=== PATIENT | female | born 1970 | race Hispanic/Latino ===

== ENCOUNTER 2020-09-06 10:24 | Emergency (ER) | payer OTHER ==
[~2020-09-06] VITALS: Ht 149.9 cm; Wt 63.5 kg
[2020-09-06 12:26] VITALS: BP 140/72
[2020-09-06] MEDS ORDERED: TETANUS/DIPHTHERIA TOXOID [ADULT] 0.5 ML VIAL IM SCH (12:30)
[2020-09-06] MEDS ORDERED: ACETAMINOPHEN-CODEINE 300/30MG TAB PO ONE (12:30)
[2020-09-06] MEDS ORDERED: NAPR-1180 PO (12:55)
== END 2020-09-06 13:16 | disposition home or self-care (01) ==
LOC: EDH 10:24
DX: S60.032A Contusion of left middle finger without damage to nail, initial encounter (principal); Z79.1 Long term (current) use of non-steroidal anti-inflammatories (NSAID); W23.0XXA Caught, crushed, jammed, or pinched between moving objects, initial encounter; Y93.89 Activity, other specified; Y92.098 Other place in other non-institutional residence as the place of occurrence of the external cause; Y99.8 Other external cause status
CPT/HCPCS: 73140; 90471; 90714

== ENCOUNTER 2021-07-08 17:10 | Emergency (ER) | payer OTHER ==
[~2021-07-08] VITALS: Ht 149.9 cm; Wt 63.5 kg
[~2021-07-08 17:10] MED LIST: NAPR-1180 PO
[2021-07-08] MEDS ORDERED: ACETAMINOPHEN WITH CODEINE 1 TAB TAB PO ONE (18:30)
[2021-07-08 18:46] LABS: BASOPHILS % (AUTO) 0.3 % (0.0-5.0); EOSINOPHILS % (AUTO) 1.6 % (0.0-8.0); HEMATOCRIT 36.1 % (36-48); LYMPHOCYTES % (AUTO) 36.7 % (21.0-51.0); MEAN CORPUSCULAR HEMOGLOBIN 31.6 pg (27.0-33.0); MEAN CORPUSCULAR HGB CONC 33.8 g/dL (32.0-36.0); MEAN CORPUSCULAR VOLUME 93.5 fL (79-99); MONOCYTES % (AUTO) 8.8 % (3.0-13.0); NEUTROPHILS % (AUTO) 52.4 % (40.0-77.0); PLATELET COUNT (AUTO) 268 K/uL (130-400); RED BLOOD CELL COUNT(AUTO) 3.86 MIL/uL (4.00-5.50); RED CELL DISTRIBUTION WIDTH 12.7 % (11.0-15.5); WHITE BLOOD COUNT (AUTO) 6.3 K/uL (4.8-10.8)
[2021-07-08 19:02] LABS: CREATININE 0.9 mg/dL (0.5-1.5); POTASSIUM 3.3 mmol/L (3.5-5.1)
[2021-07-08 19:07] LABS: ALBUMIN 3.7 g/dL (3.5-5.0); BILIRUBIN,TOTAL 0.2 mg/dL (0.2-1.0)
[2021-07-08 19:20] VITALS: BP 167/85
== END 2021-07-08 20:17 | disposition home or self-care (01) ==
LOC: EDH 17:10
DX: M79.662 Pain in left lower leg (principal); M79.661 Pain in right lower leg; Z90.710 Acquired absence of both cervix and uterus; Z79.1 Long term (current) use of non-steroidal anti-inflammatories (NSAID)
CPT/HCPCS: 36415; 80053; 85025; 93970

== ENCOUNTER 2022-04-08 01:35 | Emergency (ER) | payer OTHER ==
[~2022-04-08] VITALS: Ht 149.9 cm; Wt 56.2 kg
[2022-04-08 01:37] VITALS: BP 180/101
== END 2022-04-08 03:11 | disposition left against medical advice (07) ==
LOC: EDH 01:35
DX: M54.59 Other low back pain (principal); Z53.21 Procedure and treatment not carried out due to patient leaving prior to being seen by health care provider